=== PATIENT | male | born 1990 | race Caucasian/White ===

== ENCOUNTER 2024-09-24 12:49 | Emergency (ER) | payer OTHER, SELFPAY ==
[2024-09-24 12:51] VITALS: BP 158/97; PULSE 76; RESP 15; TEMP 36.3; O2SAT 98; BMI 32.1
[2024-09-24 13:13] LABS: Bacteria 0 SEEN /hpf (None Seen); Mucous, Urine 0 SEEN /hpf (<or=2+); Squamous Epithelial Cells - UA 0 SEEN /hpf (0-5); White Blood Cells 0 SEEN /hpf (0-5)
[2024-09-24 13:16] LABS: Color, Urine Yellow (Yellow); Glucose, Dipstick Normal (Normal); Ketone-Dipstick Negative (Negative); Leukocyte Esterase-Dipstick Negative /ul (Negative); Nitrite-Dipstick Negative (Negative); Occult Blood-Urine 250 /ul (Negative); Protein-Dipstick 30 mg/dl (Negative); Urine Bilirubin Dipstick Negative (Negative); Urine Clarity Sl. Cloudy (Clear); Urine Urobilinogen Normal (Normal)
[2024-09-24 13:28] LABS: Red Blood Cells-Urine 10-25 SEEN /hpf (0-5)
[2024-09-24 14:05] LABS: Absolute Lymphocyte Count 1.34 X10^3/uL (0.83-4.51); Absolute Neutrophil Count 4.8 X10^3/uL (2.0-7.7); Basophil# 0.04 X10^3/uL; Basophil% 0.6 % (0-1); Eosinophil# 0.09 X10^3/uL; Eosinophils% 1.3 % (0-5); Hematocrit 48.1 % (40-54); Hemoglobin 16.6 g/dL (13.0-16.5); Lymphocyte # 1.34 X10^3/ul (0.83-4.51); Lymphocyte % 19.7 % (19-41); Mean Corp Hgb Conc 34.5 g/dL (32-36); Mean Corpuscular Hgb 28.8 pg (27.0-32.0); Mean Corpuscular Volume 83.5 fL (80-94); Mean Platelet Vol. 8.1 fl (6.2-12.0); Monocyte# 0.56 X10^3/uL; Monocyte% 8.2 % (0-10); NRBC Flagged by Analyzer 0 % (0-5); Neutrophil # 4.76 X10^3/uL (2.7-7.7); Neutrophil % 69.9 % (47-70); Platelet Count 372 K/mm3 (150-450); RBC Distribution Width CV 12.7 % (11.6-14.6); RBC Distribution Width SD 38.8 fl (35.1-43.9); Red Blood Count 5.76 M/mm3 (4.6-6.2); White Blood Count 6.8 K/mm3 (4.4-11.0)
--- NOTE | 2024-09-24 14:11 | ED.VIS.FEGU ---
HPI HPI - Female History of Present Illness Chief Complaint: Flank Pain PFSH PFSH Medical History no medical history Home Medications ?Medication ?Instructions ?Recorded ?Last Taken ?Type ondansetron 4 mg disintegrating 4 mg PO Q8H PRN PRN Nausea #10 tabs 09/24/24 Unknown Rx tablet oxycodone 5 mg tablet 5 mg PO Q6H pain 3 days #12 tabs 09/24/24 Unknown Rx Allergy/AdvReac Type Severity Reaction Status Date / Time No Known Allergies Allergy Verified 09/24/24 12:53 Social History Smoking Status: Never smoker EXAM Physical Exam Const Vital Signs: 09/24/24 12:51 Temperature 97.4 F L Temperature Source Temporal Pulse Rate 76 Respiratory Rate 15 Blood Pressure 158/97 H Blood Pressure Mean 117 Pulse Ox 98 Oxygen Delivery Method Room Air [facility] MDM Narrative Medical decision making narrative: HISTORY OF PRESENT ILLNESS: 34-year-old male presents concern for right flank pain that radiates down to his groin. He notes this began intermittently since 3 AM. Feels urinary urgency. He further states a he developed acute onset of intermittent right testicular pain. Notes pain radiates to his flank. Denies history of kidney stones. Denies any trauma. REVIEW OF SYSTEMS: Pertinent positives: Flank pain, urinary urgency Pertinent negatives: Fever, vomiting PHYSICAL EXAM: Nursing triage notes reviewed, Vital signs reviewed Constitutional: please see [facility] HENT: MMM Eyes: Pupils equal round and reactive to light, Extraocular muscles intact Neck: No stridor, no JVD, full neck ROM Lungs: Clear to auscultation, No wheezing or rales. No increased work of breathing, no conversational dyspnea, no accessory muscle use, no nasal flaring. No respiratory distress noted Heart: Regular rate and rhythm, No murmurs, No rubs and No gallops, 2+ distal pulses (radial, femoral, posterior tibial) in all extremities Abdomen: Soft, there is no tenderness, rigidity, rebound or guarding, no obvious peritoneal signs, no palpable pulsatile abdominal masses, no auscultated abdominal bruit : Unable to assess an adequate exam initially secondary to patient being the hallway. Will attempt to get him in a more private area for more thorough exam. There is no CVA tenderness noted on exam Extremities: No edema Neuro: No new focal neurological deficits, cranial nerves II through XII intact, 5/5 strength in all present extremities. Intact sensation to light touch in all present extremities, 2+ reflexes bilateral patella tendons. Skin: No rash or lesions noted MEDICAL DECISION MAKING: Chief Complaint: Flank pain, urinary urgency External records reviewed: Reviewed prior imaging studies Factors affecting care: none Social determinants of health: none History obtained from others: none Consults: none [facility] Narrative: The patient was initially hemodynamically stable, afebrile and nontoxic-appearing. Exam without CVA tenderness. Exam limited by the patient's location in a hallway bed. Will attempt to get the patient in room so we can do a more thorough exam. I considered the following differential diagnosis: UTI, nephrolithiasis, pyelonephritis, AAA Triage labs were placed By nursing per protocol secondary to poor department dynamics including high volume high acuity. I the patient approximately 1 hour after his arrival. Triage labs including urinalysis, BMP, CBC. ALL IMAGES (IF OBTAINED) HAVE BEEN PERSONALLY REVIEWED AND INTERPRETED BY MYSELF. CBC with no leukocytosis, no anemia, no thrombocytopenia Urinalysis with hematuria otherwise no sign of UTI Given we cannot do a radical exam in the hallway opted for a broader imaging evaluation to further assess the patient had no signs of kidney stone, testicular torsion, epididymitis, orchitis, testicular mass CT scan abdomen pelvis showed a 3 mm calculus in the distal right ureter likely explain the patient's pain Testicle ultrasound showed no evidence of obvious orchitis, testicular torsion, epididymitis or testicular mass The synthesis of the patient's history, physical exam, labs images suggest likely kidney stone. Will give Zofran, opiate pain medication as well as instructed to take in plenty of fluids. Strict return precaution will be discussed. The patient and/or family, caregivers express understanding. The patient and/or family, caregivers agrees with the plan. Shared decision making: I will have a discussion with the patient and or visitors regarding risk/benefits of further testing or admission. They will be made aware of of the risk/benefits inherent in this decision they will be given the opportunity to voice understanding. Total critical care time today provided was at least 0 minutes. This excludes separately billable procedures. Critical care time (if documented) is secondary to the patient having high probability of clinically significant/life threatening deterioration in the patient's condition which required my urgent intervention. Impression: 1. Acute flank pain 2. Acute left flank pain Dispo: Discharge home This note was generated with Dragon dictation software. It may contain incorrect words, spelling, and punctuation that were not noted in review of the chart prior to signing. Lab Data Labs: Laboratory Results - last 24 hr 09/24/24 09/24/24 13:08 13:57 WBC 6.8 RBC 5.76 Hgb 16.6 H Hct 48.1 MCV 83.5 MCH 28.8 MCHC 34.5 RDW Std Deviation 38.8 RDW Coeff of [place] 12.7 Plt Count 372 MPV 8.1 Immature Gran % (Auto) 0.300 Neut % (Auto) 69.9 Lymph % (Auto) 19.7 Bates % (Auto) 8.2 Eos % (Auto) 1.3 Baso % (Auto) 0.6 Absolute Neuts (auto) 4.8 Absolute Lymphs (auto) 1.34 Nucleated RBC % 0 Sodium 139 Potassium 4.5 Chloride 104 Carbon Dioxide 24.1 Anion Gap 12 BUN 16 Creatinine 0.95 Estim Creat Clear Calc 116.85 Est GFR (MDRD) Non-Af 106 BUN/Creatinine Ratio 16.3 Glucose 97 Calcium 9.8 Urine Color Yellow Urine Clarity Sl. Cloudy Urine pH 6.0 Ur Specific [place] 1.020 Urine Protein 30 H Urine Glucose (UA) Normal Urine Ketones Negative Urine Occult Blood 250 H Urine Nitrite Negative Urine Bilirubin Negative Urine Urobilinogen Normal Ur Leukocyte Esterase Negative Urine RBC 10-25 SEEN Urine WBC 0 SEEN Ur Squamous Epith Cells 0 SEEN Urine Bacteria 0 SEEN Urine Mucus 0 SEEN Radiography Diagnostic Testing: Clinical Impression(s) from Imaging Studies Testicular Ultrasound 09/24/24 14:25 IMPRESSION: 1. No acute abnormality. 2. Trace right hydrocele. Trace left hydrocele suspected on CT is not visualized sonographically. 3. Additional description as above. Reading Location: [id number] Abdomen/Pelvis CT 09/24/24 14:45 IMPRESSION: 1. 3 mm calculus in the distal right ureter. No hydronephrosis. 2. Additional description as above. Reading Location: [id number] Discharge Plan Triage Chief Complaint: Flank Pain ED Provider: John Duarte Dx/Rx/DC Orders Instructions: ED Kidney Stone with Pain Prescriptions: New oxycodone 5 mg tablet 5 mg PO Q6H 3 Days Qty: 12 0RF ondansetron 4 mg tablet,disintegrating 4 mg PO Q8H PRN PRN (Reason: Nausea) Qty: 10 0RF Primary Care Provider: [facility] ,Out of Referrals: Vinicio Quevedo MD [Non-Staff] - Activity Restrictions/Additional Instructions: Thank you for trusting us with your care today! Your labs images are consistent with a kidney stone. The ultrasound of your testicle was negative for testicular pathology. Your symptoms are likely secondary to referred pain from your kidney stone. Your stone is of the size location should pass spontaneously on its own. Please take Tylenol (2 pills, 650 mg), ibuprofen (2 pills, 400 mg) every 6 hours as needed for pain and fever control. Please take oxycodone for breakthrough pain Please take Zofran as needed for nausea or vomiting Please return to the emergency department if your symptoms change or worsen. Please follow with your primary care physician for further outpatient evaluation and management. Print Language: Belarusian Disposition Disposition: Home, Self Care
[2024-09-24 14:24] LABS: Anion Gap 12 (5-15); BUN 16 mg/dL (4-19); BUN/Creat Ratio 16.3 RATIO (10-20); Calcium,Total 9.8 mg/dL (7.6-11.0); Carbon Dioxide 24.1 mmol/L (21.0-32.0); Chloride 104 mmol/L (98-108); Creatinine, Serum 0.95 mg/dL (0.70-1.20); EST Glomerular Filtration Rate 106 (>60); Estimated Creatinine Clearance 116.85 ml/min (50-250); Glucose 97 mg/dL (70-99); Potassium 4.5 mmol/L (3.3-5.1); Sodium Level 139 mmol/L (133-145)
--- NOTE | 2024-09-24 14:25 | US_ITS ---
PROCEDURE: TESTICULAR WITH ARTERIAL FLOW REASON FOR EXAM: Right testicular pain. TECHNIQUE: Grayscale and color/spectral doppler imaging of the scrotum and contents. COMPARISON: Same day CT. FINDINGS: RIGHT testicle: 4.8 x 2.7 x 2.6 cm. Appearance: Homogeneous echotexture. No visualized mass. Right epididymis: Unremarkable. Epididymal head measures 9 x 11 x 10 mm. Vascular flow: Normal low resistance arterial and venous waveforms. Hydrocele: Trace. LEFT testicle: 4.6 x 3.4 x 2.7 cm. Appearance: Homogeneous echotexture. No visualized mass. Left epididymis: Unremarkable. Epididymal head measures 9 x 13 x 13 mm. Vascular flow: Normal low resistance arterial and venous waveforms. Hydrocele: None visualized. Trace hydrocele suspected on CT is not visualized sonographically. Scrotal wall: Unremarkable. US/Testicular with Arterial Flow IMPRESSION: 1. No acute abnormality. 2. Trace right hydrocele. Trace left hydrocele suspected on CT is not visualize d sonographically. 3. Additional description as above. Reading Location: [id number]
--- NOTE | 2024-09-24 14:45 | CT_ITS ---
PROCEDURE: ABDOMEN/PELVIS WITHOUT CONT REASON FOR EXAM: Right flank pain rule out kidney stone TECHNIQUE: CT abdomen and pelvis was performed without IV contrast. IV CONTRAST: None COMPARISON: None. FINDINGS: Note that evaluation of the abdominopelvic viscera, vasculature, and remaining soft tissues is limited in the absence of IV contrast. Lung bases: Unremarkable. Liver: Unremarkable. Spleen: Unremarkable. Gallbladder: Unremarkable. Pancreas: Unremarkable. Adrenals: Unremarkable. Kidneys: 3 mm calculus in the distal right ureter. Trace adjacent stranding. Mild asymmetric fullness of the right ureter and renal pelvis without hydronephrosis. Bowel: Unremarkable. Normal caliber appendix. Lymph nodes: Unremarkable. Vasculature: Unremarkable. Peritoneum: Unremarkable. Bladder: Underdistended and suboptimally evaluated, grossly unremarkable. Reproductive Organs: Not well evaluated by noncontrast CT. Suspect trace hydroceles. Body wall: Tiny fat containing left inguinal and umbilical hernias. Bones: Unremarkable. CT/Abdomen/Pelvis without Cont IMPRESSION: 1. 3 mm calculus in the distal right ureter. No hydronephrosis. 2. Additional description as above. Reading Location: [facility]
[2024-09-24] MEDS: Ketorolac 15 MG/ML Vial IV (15:47)
[2024-09-24 16:00] VITALS: BP 136/67; PULSE 84; RESP 16; O2SAT 99
[2024-09-24 17:06] VITALS: BP 136/67; PULSE 84; RESP 16; TEMP 36.7; O2SAT 99
== END 2024-09-24 17:06 | disposition home or self-care (01) ==
PROVIDERS: Emergency Provider Emergency Medicine; Referring Provider Emergency Medicine; Visit Provider Emergency Medicine
DX: N20.1 Calculus of ureter (principal); N50.811 Right testicular pain; R10.9 Unspecified abdominal pain
CPT/HCPCS: 74176; 76870; 80048; 81001; 85025; 93976; 96374; 99284; A4216